=== PATIENT | male | born 2000 | race Caucasian/White ===

== ENCOUNTER 2021-05-12 18:58 | Emergency (ER) | payer BC, MEDICARE ==
[~2021-05-12] VITALS: Ht 175.3 cm; Wt 97.5 kg
[2021-05-12 19:51] VITALS: BP 131/78
--- NOTE | 2021-05-12 19:54 | NUR ---
TO LOBBY A/W BED AMBULATORY
--- NOTE | 2021-05-12 21:13 | NUR ---
PT CALLED IN LOBBY. NO ANSWER
--- NOTE | 2021-05-12 21:54 | NUR ---
PT AMBULATED TO BED 11
--- NOTE | 2021-05-12 22:00 | NUR ---
21 YO M BIB SELF WITH C/C OF L ANKLE SWELLING AND PAIN 04/01 X2 WEEKS, PT DENIES INJURY. PT STATED PAIN STARTED AT ACHILLES AND RADIATED TO HEEL ALSO HAS PAIN ON R HEEL BUT NO SWELLING. PT HAS LIMITED MOVEMENT, IS ABLE TO WALK BUT STATES IT'S UNCOMFORTABLE. PT ADDED HE WAS BITTEN BY MOSQUITOS AND BEGAN SWELLING, WAS SEEN AT URGENT [facility]ARE. 1 MONTH LATER LYMPH BEGAN TO SWELL WELL. DENIES HX AND RX NKA
[2021-05-12] MEDS ORDERED: SULF-59 PO (23:01)
[2021-05-12] MEDS ORDERED: CEPH-588 PO (23:01)
[2021-05-12] MEDS ORDERED: CHLO480L2 TP (23:01)
[2021-05-12 23:07] VITALS: BP 131/78
--- NOTE | 2021-05-12 23:07 | NUR ---
Patient discharged with v/s stable. Written and verbal after care instructions given and explained. Patient alert, oriented and verbalized understanding of instructions. Ambulatory with steady gait. All questions addressed prior to discharge. ID band removed. Patient advised to follow up with PMD. Rx of KEFLEX,HIBICLENS, BACTRIM, given. Patient educated on indication of medication including possible reaction and side effects. Opportunity to ask questions provided and answered.
== END 2021-05-12 23:07 | disposition home or self-care (01) ==
LOC: MED 18:58
DX: L03.116 Cellulitis of left lower limb (principal); Z88.0 Allergy status to penicillin
CPT/HCPCS: 73610; 73630; 99284